=== PATIENT | male | born 1935 | race Caucasian/White ===

== ENCOUNTER 2024-03-04 10:36 | Emergency (ER) | payer MEDICARE, SELFPAY ==
[2024-03-04] VITALS (27 sets, daily range): BP systolic 122–155; BP diastolic 58–98; PULSE 85–103; RESP 16–32; TEMP 36.4–36.6; O2SAT 92–100; BMI 18.1
--- NOTE | 2024-03-04 10:37 | NURSING ---
NO OLD EKGS
--- NOTE | 2024-03-04 10:59 | RAD_ITS ---
STUDY: X-RAY CHEST REASON FOR EXAM: Male, 88 years old. Confusion. TECHNIQUE: Frontal view of the chest COMPARISON: None. FINDINGS: The lungs are clear. There are no pleural effusions. There is no pneumothorax. The heart is normal in size. The patient is status post sternotomy. There is a pacemaker in place. The visualized osseous structures are within normal limits. RAD/Chest 1 View (Portable) IMPRESSION: No acute thoracic pathology. Electronically Signed: Bernard Aguirre MD at 11:57 EDT ,
--- NOTE | 2024-03-04 10:59 | CT_ITS ---
STUDY: CT BRAIN WITHOUT CONTRAST REASON FOR EXAM: Male, 88 years old. Altered mental status. Fall. RADIATION DOSAGE (If Supplied By Facility): CTDIvol = ( 44.99 ) mGy, DLP = ( 746.73 ) mGycm TECHNIQUE: Transaxial CT imaging of the brain was performed without administration of intravenous contrast material. Individualized dose optimization techniques were used for this CT. COMPARISON: No relevant prior comparison study available FINDINGS: PARENCHYMA: There is an acute right sided subdural bleed in the temporal and parietal regions, measuring up to 9 mm in thickness. There is an intraparenchymal hemorrhage in the right temporal lobe measuring 2.0 x 1.3 x 1.1 cm. There is adjacent edema noted in the right temporal lobe. There is no additional bleed. 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 There is no acute infarct. There are chronic ischemic and atrophic changes. VENTRICLES: There is no hydrocephalus. MASTOID AIR CELLS AND PARANASAL SINUSES: There is opacification of the left maxillary sinus. The visualized paranasal sinuses are otherwise clear. The mastoid air cells are clear. BONES: There is no skull fracture. SOFT TISSUES: The visualized soft tissues are within normal limits. CT/Brain/Head without Contrast IMPRESSION: Acute right sided subdural bleed in the temporal and parietal regions, measuring up to 9 mm in thickness. Intraparenchymal hemorrhage in the right temporal lobe measuring 2.0 x 1.3 x 1.1 cm. There is adjacent edema noted in the right temporal lobe. 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 Chronic ischemic and atrophic changes. No acute infarct. Opacification of the left maxillary sinus. N.B. : The above Results were Read Back by Bernard Aguirre MD to DO Jenny, and understanding confirmed on 03/04/2024 11:53:29 (ET). Electronically Signed: Bernard Aguirre MD at 11:57 EDT ,
--- NOTE | 2024-03-04 11:02 | EKG12_ITS ---
Test Reason : SEIZURE Blood Pressure : / mmHG Vent. Rate : 101 BPM Atrial Rate : 101 BPM P-R Int : 154 ms QRS Dur : 090 ms QT Int : 322 ms P-R-T Axes : 040 -02 263 degrees QTc Int : 417 ms Sinus tachycardia with occasional Premature ventricular complexes Nonspecific ST and T wave abnormality Abnormal ECG Confirmed by Ubaldo Anguiano ([id number]), assistant production editor PIERRE YEAGER ([id number]) on 03/05/2024 9:58:41 AM Referred By: ANDREA Confirmed By:Ubaldo Anguiano
--- NOTE | 2024-03-04 11:05 | EX.ED.DYSGE1 ---
HPI <GLYNN Graham - Last Filed: 03/04/24 20:14> History of Present Illness Chief Complaint: Seizure Narrative Narrative: 88-year-old male with past medical history of traumatic subarachnoid hemorrhage, type 2 diabetes, congestive heart failure presents after having seizures. Reports from EMS that he fell several weeks ago and had a traumatic SDH. He is staying at [facility]. Yesterday he had a fall and was transported [facility]. Currently this morning he was having seizures recurrently for 30 minutes which broke with Versed administered by EMS. [facility] states he has not been eating over the last 2 to 3 weeks. [facility] <GLYNN Graham - Last Filed: 03/04/24 20:14> [facility] Medical History (Updated 03/04/24 @ 12:54 by GLYNN Graham) A-fib CHF (congestive heart failure) Dementia Diabetes Dysphagia Encephalopathy acute Full code status Generalized muscle weakness Pneumonia Rhabdomyolysis Skull fracture Traumatic ischemia of muscle Traumatic subarachnoid hemorrhage Home Medications atorvastatin 20 mg tablet 20 mg PO DAILY 03/04/24 [History Last Taken Unknown] gabapentin 100 mg capsule 200 mg PO BID 03/04/24 [History Last Taken Unknown] metformin 500 mg tablet,extended release 24 hr 500 mg PO DAILY 03/04/24 [History Last Taken Unknown] metoprolol succinate 100 mg tablet,extended release 24 hr 100 mg PO DAILY 03/04/24 [History Last Taken Unknown] mirtazapine 15 mg tablet (Remeron) 7.5 mg PO DAILY 03/04/24 [History Last Taken Unknown] Allergy/AdvReac Type Severity Reaction Status Date / Time heparin Allergy Unknown PT UNABLE Verified 03/04/24 10:38 TO RESPOND-NEEDS F/U Social History Smoking Status: Unknown if ever smoked ROS <GLYNN Graham - Last Filed: 03/04/24 20:14> ROS ED ROS Narrative Unable to obtain due to mental status EXAM <GLYNN Graham - Last Filed: 03/04/24 20:14> Physical Exam Narrative Exam Narrative: CONST: Cachectic male lying in bed with eyes closed. EYES: PERRL. ENT: Dry mucous membranes. NECK: Normal inspection. RESP: No respiratory distress, CTAB. CVS: Regular rate and rhythm, no murmur, no gallop. ABD: Soft and nontender, no guarding or rebound. SKIN: Color normal, no rash, warm, dry, intact. EXTREMITIES: Normal appearance, no pedal edema. NEURO: Patient responds to voice by moaning, no coherent speech, does not follow commands, protecting his airway. Const Vital Signs: 03/04/24 10:38 03/04/24 12:15 03/04/24 12:30 Temperature 97.9 F Temperature Source Temporal Pulse Rate 103 H 90 Respiratory Rate 32 H 27 H Blood Pressure 146/89 H 155/86 H 147/87 H Blood Pressure Mean 108 107 104 Pulse Ox 100 98 Oxygen Delivery Method Nasal Cannula Oxygen Flow Rate (L/min) 3 03/04/24 12:45 03/04/24 12:45 03/04/24 13:00 Temperature Temperature Source Pulse Rate 90 90 Respiratory Rate 26 H 26 H Blood Pressure 148/98 H 148/92 H Blood Pressure Mean 113 109 Pulse Ox 99 99 Oxygen Delivery Method Oxygen Flow Rate (L/min) 03/04/24 13:15 03/04/24 13:30 03/04/24 13:45 Temperature Temperature Source Pulse Rate 88 86 90 Respiratory Rate 18 17 21 H Blood Pressure 135/84 H 142/71 H Blood Pressure Mean 99 89 Pulse Ox 99 100 99 Oxygen Delivery Method Oxygen Flow Rate (L/min) 03/04/24 14:00 03/04/24 14:15 03/04/24 14:30 Temperature Temperature Source Pulse Rate 85 88 85 Respiratory Rate 21 H 22 H 18 Blood Pressure 137/58 H Blood Pressure Mean 80 Pulse Ox 100 100 97 Oxygen Delivery Method Oxygen Flow Rate (L/min) 03/04/24 14:45 03/04/24 15:00 03/04/24 15:15 Temperature Temperature Source Pulse Rate 88 90 93 Respiratory Rate 21 H 18 23 H Blood Pressure Blood Pressure Mean Pulse Ox 95 92 92 Oxygen Delivery Method Oxygen Flow Rate (L/min) 03/04/24 15:30 03/04/24 15:45 03/04/24 16:00 Temperature Temperature Source Pulse Rate 88 92 85 Respiratory Rate 16 19 H 16 Blood Pressure 126/61 H Blood Pressure Mean 81 Pulse Ox 94 94 95 Oxygen Delivery Method Oxygen Flow Rate (L/min) 03/04/24 16:15 03/04/24 16:30 03/04/24 16:45 Temperature Temperature Source Pulse Rate 91 93 95 Respiratory Rate 22 H 17 21 H Blood Pressure Blood Pressure Mean Pulse Ox 95 94 100 Oxygen Delivery Method Oxygen Flow Rate (L/min) 03/04/24 17:00 03/04/24 17:15 03/04/24 17:30 Temperature Temperature Source Pulse Rate 91 91 90 Respiratory Rate 16 18 17 Blood Pressure Blood Pressure Mean Pulse Ox 98 97 97 Oxygen Delivery Method Oxygen Flow Rate (L/min) 03/04/24 17:45 03/04/24 18:00 03/04/24 18:15 Temperature Temperature Source Pulse Rate 91 90 91 Respiratory Rate 21 H 20 H 21 H Blood Pressure 124/73 H Blood Pressure Mean 85 Pulse Ox 99 99 99 Oxygen Delivery Method Oxygen Flow Rate (L/min) 03/04/24 20:02 Temperature 97.5 F L Temperature Source Pulse Rate 88 Respiratory Rate 18 Blood Pressure 122/61 H Blood Pressure Mean 81 Pulse Ox 96 Oxygen Delivery Method Oxygen Flow Rate (L/min) <Dr. Colt Alvarado, DO - Last Filed: 03/04/24 20:49> Physical Exam Const Vital Signs: 03/04/24 10:38 03/04/24 12:15 03/04/24 12:30 Temperature 97.9 F Temperature Source Temporal Pulse Rate 103 H 90 Respiratory Rate 32 H 27 H Blood Pressure 146/89 H 155/86 H 147/87 H Blood Pressure Mean 108 107 104 Pulse Ox 100 98 Oxygen Delivery Method Nasal Cannula Oxygen Flow Rate (L/min) 3 03/04/24 12:45 03/04/24 12:45 03/04/24 13:00 Temperature Temperature Source Pulse Rate 90 90 Respiratory Rate 26 H 26 H Blood Pressure 148/98 H 148/92 H Blood Pressure Mean 113 109 Pulse Ox 99 99 Oxygen Delivery Method Oxygen Flow Rate (L/min) 03/04/24 13:15 03/04/24 13:30 03/04/24 13:45 Temperature Temperature Source Pulse Rate 88 86 90 Respiratory Rate 18 17 21 H Blood Pressure 135/84 H 142/71 H Blood Pressure Mean 99 89 Pulse Ox 99 100 99 Oxygen Delivery Method Oxygen Flow Rate (L/min) 03/04/24 14:00 03/04/24 14:15 03/04/24 14:30 Temperature Temperature Source Pulse Rate 85 88 85 Respiratory Rate 21 H 22 H 18 Blood Pressure 137/58 H Blood Pressure Mean 80 Pulse Ox 100 100 97 Oxygen Delivery Method Oxygen Flow Rate (L/min) 03/04/24 14:45 03/04/24 15:00 03/04/24 15:15 Temperature Temperature Source Pulse Rate 88 90 93 Respiratory Rate 21 H 18 23 H Blood Pressure Blood Pressure Mean Pulse Ox 95 92 92 Oxygen Delivery Method Oxygen Flow Rate (L/min) 03/04/24 15:30 03/04/24 15:45 03/04/24 16:00 Temperature Temperature Source Pulse Rate 88 92 85 Respiratory Rate 16 19 H 16 Blood Pressure 126/61 H Blood Pressure Mean 81 Pulse Ox 94 94 95 Oxygen Delivery Method Oxygen Flow Rate (L/min) 03/04/24 16:15 03/04/24 16:30 03/04/24 16:45 Temperature Temperature Source Pulse Rate 91 93 95 Respiratory Rate 22 H 17 21 H Blood Pressure Blood Pressure Mean Pulse Ox 95 94 100 Oxygen Delivery Method Oxygen Flow Rate (L/min) 03/04/24 17:00 03/04/24 17:15 03/04/24 17:30 Temperature Temperature Source Pulse Rate 91 91 90 Respiratory Rate 16 18 17 Blood Pressure Blood Pressure Mean Pulse Ox 98 97 97 Oxygen Delivery Method Oxygen Flow Rate (L/min) 03/04/24 17:45 03/04/24 18:00 03/04/24 18:15 Temperature Temperature Source Pulse Rate 91 90 91 Respiratory Rate 21 H 20 H 21 H Blood Pressure 124/73 H Blood Pressure Mean 85 Pulse Ox 99 99 99 Oxygen Delivery Method Oxygen Flow Rate (L/min) 03/04/24 20:02 Temperature 97.5 F L Temperature Source Pulse Rate 88 Respiratory Rate 18 Blood Pressure 122/61 H Blood Pressure Mean 81 Pulse Ox 96 Oxygen Delivery Method Oxygen Flow Rate (L/min) [facility] <GLYNN Graham - Last Filed: 03/04/24 20:14> [facility] Narrative Medical decision making narrative: I spoke with the patient's son, Roderick Canseco . who provided more history. He fell on 02/21/2024 and had a traumatic subdural hemorrhage treated at [place] without surgical intervention. He was discharged to [facility] and was awake and talking but not eating or drinking with poor memory and poor mobility. He had several falls over the last few days and became more unresponsive. Was seen at [place] again and their documents from 03/03/[address] head showed new versus redistributing SDH with 9 mm thickness?expected evolution of right temporal intraparenchymal hemorrhage. There was a new punctate hyperdensity in the left lateral ventricle which cannot exclude intraventricular hemorrhage. This morning he had seizure activity which broke with Versed from EMS. He is lying in bed with eyes closed. He is protecting his airway. GCS 8. Hemodynamically stable. He has very dry mucous membranes restarted with blood work. WBC is 18.8, hemoglobin 10.3, he is hyponatremic at 151, potassium 3.0, creatinine 0.66. Lactate is 1.3. Urinalysis has ketones and blood but no infection. CXR shows no acute process. CT brain shows a right-sided subdural bleed in the temporoparietal region measuring 9 mm. There is also an right temporal lobe intraparenchymal hemorrhage. Sounds very similar from the [place] report on 03/03/2024. Patient's family members arrived at bedside and were informed of the results. Had a lengthy discussion about goals of care and his CODE STATUS. He has been declining for the last 2 to 3 weeks after this head bleed, continued to fall and is now more unresponsive. His son Roderick Leonard Jr. and family members would like to make him DNR comfort care and hospice consult was placed in the ED. The hospice nurse arrived at 5 PM to speak with the patient's family and after discussion the plan is to try and get the patient placed to their inpatient hospice unit. Patient will be transferred to [facility] hosp[facility]. 30 minutes of critical care time was consumed by evaluation patient, treatment and planning, discussion with family and consultants. Lab Data Attestation: I reviewed the patient's lab results. Labs: Laboratory Results - last 24 hr 03/04/24 03/04/24 03/04/24 10:43 11:10 11:25 WBC 18.8 H RBC 3.76 L Hgb 10.3 L Hct 33.9 L MCV 90.2 MCH 27.4 MCHC 30.4 L RDW Std Deviation 48.7 H RDW Coeff of Frans[place] 14.8 H Plt Count 377 MPV 9.2 Immature Gran % (Auto) 0.600 Neut % (Auto) 84.0 H Lymph % (Auto) 5.0 L [place] % (Auto) 9.4 Eos % (Auto) 0.6 Baso % (Auto) 0.4 Absolute Neuts (auto) 15.8 H Absolute Lymphs (auto) 0.94 Nucleated RBC % 0 Differential Comment SCANNED Diff Path Review March Sodium 151 H Potassium 3.0 L Chloride 113 H Carbon Dioxide 31.0 Anion Gap 7 BUN 8 Creatinine 0.66 L Estim Creat Clear Calc 49.31 Est GFR (MDRD) Af Amer 147 Est GFR (MDRD) Non-Af 121 BUN/Creatinine Ratio 12.1 Glucose 175 H Lactic Acid 1.3 Calcium 8.4 L Total Bilirubin 0.60 AST 14 L ALT 17 Alkaline Phosphatase 85 Total Protein 6.2 L Albumin 2.0 L Globulin 4.2 Albumin/Globulin Ratio 0.5 L Urine Color Yellow Urine Clarity Clear Urine pH 5.0 Ur Specific [place] 1.015 Urine Protein 15 H Urine Glucose (UA) 50 H Urine Ketones 50 H Urine Occult Blood 150 H Urine Nitrite Negative Urine Bilirubin Negative Urine Urobilinogen Normal Ur Leukocyte Esterase 25 H Urine RBC 10-25 SEEN Urine WBC 0-5 SEEN Ur Squamous Epith Cells 0 SEEN Urine Bacteria RARE Urine Mucus 0 SEEN Radiography Diagnostic Testing: Clinical Impression(s) from Imaging Studies Brain CT 03/04/24 10:59 IMPRESSION: Acute right sided subdural bleed in the temporal and parietal regions, measuring up to 9 mm in thickness. Intraparenchymal hemorrhage in the right temporal lobe measuring 2.0 x 1.3 x 1.1 cm. There is adjacent edema noted in the right temporal lobe. 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 Chronic ischemic and atrophic changes. No acute infarct. Opacification of the left maxillary sinus. N.B. : The above Results were Read Back by Bernard Aguirre MD to DO Jenny, and understanding confirmed on 03/04/2024 11:53:29 (ET). Electronically Signed: Bernard Aguirre MD at 11:57 EDT , ADDENDUM: 03/04/24 1204 IMPRESSION: Acute right sided subdural bleed in the temporal and parietal regions, measuring up to 9 mm in thickness. Intraparenchymal hemorrhage in the right temporal lobe measuring 2.0 x 1.3 x 1.1 cm. There is adjacent edema noted in the right temporal lobe. 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 Chronic ischemic and atrophic changes. No acute infarct. Opacification of the left maxillary sinus. N.B. : The above Results were Read Back by Bernard Aguirre MD to DO Jenny, and understanding confirmed on 03/04/2024 11:53:29 (ET). Electronically Signed: Bernard Aguirre MD at 11:57 EDT , Chest X-Ray 03/04/24 10:59 IMPRESSION: No acute thoracic pathology. Electronically Signed: Bernard Aguirre MD at 11:57 EDT , EKG Initial EKG: Attestation: I personally reviewed and interpreted this EKG as follows: Interpretation: Sinus Rhythm and No Acute Injury Pattern Comments: Sinus tachycardia at 101 bpm with occasional PVCs Nonspecific ST/T wave abnormality <Dr. Colt Alvarado DO - Last Filed: 03/04/24 20:49> [facility] Lab Data Labs: Laboratory Results - last 24 hr 03/04/24 03/04/24 03/04/24 10:43 11:10 11:25 WBC 18.8 H RBC 3.76 L Hgb 10.3 L Hct 33.9 L MCV 90.2 MCH 27.4 MCHC 30.4 L RDW Std Deviation 48.7 H RDW Coeff of [place] 14.8 H Plt Count 377 MPV 9.2 Immature Gran % (Auto) 0.600 Neut % (Auto) 84.0 H Lymph % (Auto) 5.0 L [place] % (Auto) 9.4 Eos % (Auto) 0.6 Baso % (Auto) 0.4 Absolute Neuts (auto) 15.8 H Absolute Lymphs (auto) 0.94 Nucleated RBC % 0 Differential Comment SCANNED Diff Path Review March Sodium 151 H Potassium 3.0 L Chloride 113 H Carbon Dioxide 31.0 Anion Gap 7 BUN 8 Creatinine 0.66 L Estim Creat Clear Calc 49.31 Est GFR (MDRD) Af Amer 147 Est GFR (MDRD) Non-Af 121 BUN/Creatinine Ratio 12.1 Glucose 175 H Lactic Acid 1.3 Calcium 8.4 L Total Bilirubin 0.60 AST 14 L ALT 17 Alkaline Phosphatase 85 Total Protein 6.2 L Albumin 2.0 L Globulin 4.2 Albumin/Globulin Ratio 0.5 L Urine Color Yellow Urine Clarity Clear Urine pH 5.0 Ur Specific [place] 1.015 Urine Protein 15 H Urine Glucose (UA) 50 H Urine Ketones 50 H Urine Occult Blood 150 H Urine Nitrite Negative Urine Bilirubin Negative Urine Urobilinogen Normal Ur Leukocyte Esterase 25 H Urine RBC 10-25 SEEN Urine WBC 0-5 SEEN Ur Squamous Epith Cells 0 SEEN Urine Bacteria RARE Urine Mucus 0 SEEN Radiography Diagnostic Testing: Clinical Impression(s) from Imaging Studies Brain CT 03/04/24 10:59 IMPRESSION: Acute right sided subdural bleed in the temporal and parietal regions, measuring up to 9 mm in thickness. Intraparenchymal hemorrhage in the right temporal lobe measuring 2.0 x 1.3 x 1.1 cm. There is adjacent edema noted in the right temporal lobe. 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 Chronic ischemic and atrophic changes. No acute infarct. Opacification of the left maxillary sinus. N.B. : The above Results were Read Back by Bernard Aguirre MD to DO Jenny, and understanding confirmed on 03/04/2024 11:53:29 (ET). Electronically Signed: Bernard Aguirre MD at 11:57 EDT , ADDENDUM: 03/04/24 1206 IMPRESSION: Acute right sided subdural bleed in the temporal and parietal regions, measuring up to 9 mm in thickness. Intraparenchymal hemorrhage in the right temporal lobe measuring 2.0 x 1.3 x 1.1 cm. There is adjacent edema noted in the right temporal lobe. 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 Chronic ischemic and atrophic changes. No acute infarct. Opacification of the left maxillary sinus. N.B. : The above Results were Read Back by Bernard Aguirre MD to DO Jenny, and understanding confirmed on 03/04/2024 11:53:29 (ET). Electronically Signed: Bernard Aguirre MD at 11:57 EDT , Chest X-Ray 03/04/24 10:59 IMPRESSION: No acute thoracic pathology. Electronically Signed: Bernard Aguirre MD at 11:57 EDT , Treatment and Re-Evaluation :: I have personally performed a face to face assessment of the patient and have reviewed the TOMMIE Note. I performed a substantive portion of the visit including all aspects of the following. My hernandez findings include: History: Patient presents with possible seizure that was noticed today. Patient was having some twitching of his face. The senior care staff states that this has been constant. EMS administered Versed prior to arrival and the twitching stopped. Patient is nonverbal and is a poor informant. Patient had recent fall and subdural bleeding. Patient was seen at [facility] for that. Family requested the patient be transferred back to the extended care facility yesterday. Exam: Vital signs are stable except for mild tachypnea of 32. Patient is afebrile. Patient is in no acute distress. Oral mucosa is dry. Neck is supple. Trachea is midline. There is no JVD. Heart was regular rate and rhythm. Lungs are clear and equal bilaterally. There is adequate respiratory effort noted. Abdomen is soft. Bowel sounds are normal. There is no distention noted. Cranial nerves II through XII are grossly intact. There are no appreciable deficits noted. Patient is uncooperative with neurologic testing. Medical Decision Making: Differential diagnosis includes intracranial bleeding, seizure, electrolyte abnormality, dehydration, infection, and functional decline. CT scan of the brain will be obtained to assess for intracranial bleeding. Chest x-ray will be obtained to assess for pneumonia. EKG will be obtained to assess for cardiac dysrhythmia and cardiac ischemia. CBC will be obtained to assess for leukocytosis and anemia. Comprehensive metabolic profile will be obtained to assess for hepatic function, renal function, and electrolyte abnormality. Urinalysis will be obtained to assess for urinary tract infection. Serum lactate will be obtained to assess for sepsis. Patient was given IV fluids. CBC shows mild leukocytosis of 18.8. Hemoglobin was 10.3 and hematocrit was 33.9. Platelets are normal. Comprehensive metabolic profile shows a sodium of 151. Potassium was 3.0. Creatinine was slightly low at 0.66. Glucose was 175. Remainder was essentially within normal limits. Urinalysis was reviewed. Leukocyte esterase was 25 with 0-5 white blood cells and no bacteria. Occult blood was 150 with 10-[address] scan of the brain was obtained. There is a right subdural hemorrhage that is acute. It measures approximately 9 mm. There is also intraparenchymal bleeding in the right temporal area measuring 2.0 cm x 1.3 cm x 1.1 cm. Upon review of records from [facility], these are similar in appearance to CT scan performed there. Findings were discussed with the family. Family is requesting patient to be made hospice. Hospice will be in to evaluate the patient and discuss options with the family. Family and hospice discussed options and patient will be transferred to inpatient hospice facility. Family understands and is agreeable with the plan. All questions were answered. Discharge Plan Triage Chief Complaint: Seizure ED Midlevel Provider: Ester Weinberg ED Provider: Colt Alvarado Dx/Rx/DC Orders Clinical Impression: Acute dehydration, Subdural hemorrhage, Seizures, Encephalopathy, Hypernatremia, Hypokalemia Prescriptions: No Action atorvastatin 20 mg tablet 20 mg PO DAILY gabapentin 100 mg capsule 200 mg PO BID metformin 500 mg tablet extended release 24 hr 500 mg PO DAILY metoprolol succinate 100 mg tablet extended release 24 hr 100 mg PO DAILY mirtazapine [Remeron] 15 mg tablet 7.5 mg PO DAILY [facility] [Primary Care Provider] - Disposition Disposition: Hospice in Medical Facility Discharge Location: [facility] Discharge Date/Time: 03/04/24 20:28
[2024-03-04] MEDS: 0.9% Normal Saline (1000mL) 1,000 ML 999 ML IV (11:07)
[2024-03-04 11:10] LABS: Absolute Lymphocyte Count 0.94 X10^3/uL (0.83-4.51); Absolute Neutrophil Count 15.8 X10^3/uL (2.0-7.7); Basophil# 0.08 X10^3/uL; Basophil% 0.4 % (0-1); Eosinophil# 0.12 X10^3/uL; Eosinophils% 0.6 % (0-5); Hematocrit 33.9 % (40-54); Hemoglobin 10.3 g/dL (13.0-16.5); Lymphocyte # 0.94 X10^3/ul (0.83-4.51); Mean Corp Hgb Conc 30.4 g/dL (32-36); Mean Corpuscular Hgb 27.4 pg (27.0-32.0); Mean Corpuscular Volume 90.2 fL (80-94); Mean Platelet Vol. 9.2 fl (6.2-12.0); Monocyte# 1.77 X10^3/uL; Monocyte% 9.4 % (0-10); NRBC Flagged by Analyzer 0 % (0-5); Neutrophil # 15.75 X10^3/uL (2.7-7.7); POSITIVE DIFFERENTIAL YES; Platelet Count 377 K/mm3 (150-450); RBC Distribution Width CV 14.8 % (11.6-14.6); RBC Distribution Width SD 48.7 fl (35.1-43.9); Red Blood Count 3.76 M/mm3 (4.6-6.2); White Blood Count 18.8 K/mm3 (4.4-11.0)
[2024-03-04 11:22] LABS: ALB/GLOB Ratio 0.5 RATIO (0.9-2.4); AST(SGOT) 14 U/L (15-37); Alanine Aminotransfer ALT/SGPT 17 U/L (16-61); Alkaline Phosphatase 85 U/L (45-117); Anion Gap 7 (5-15); BUN 8 mg/dL (7-18); BUN/Creat Ratio 12.1 RATIO (10-20); Calcium,Total 8.4 mg/dL (8.5-10.1); Chloride 113 mmol/L (98-107); Creatinine, Serum 0.66 mg/dL (0.70-1.30); EST Glomerular Filtration Rate 121 mL/min (>60); Est Glom Filt Rate - Afr Amer 147 mL/min (>60); Estimated Creatinine Clearance 49.31 ml/min; Globulin 4.2 g/dL (2.2-4.2); Glucose 175 mg/dL (74-106); Protein, Total 6.2 g/dL (6.4-8.2); Sodium Level 151 mmol/L (136-145)
[2024-03-04 11:32] LABS: Mucous, Urine 0 SEEN /hpf (<or=2+); Squamous Epithelial Cells - UA 0 SEEN /hpf (0-5)
[2024-03-04 11:53] LABS: Color, Urine Yellow (Yellow); Glucose, Dipstick 50 mg/dl (Normal); Ketone-Dipstick 50 mg/dl (Negative); Leukocyte Esterase-Dipstick 25 /ul (Negative); Nitrite-Dipstick Negative (Negative); Occult Blood-Urine 150 /ul (Negative); Protein-Dipstick 15 mg/dl (Negative); Specific Gravity, Urine 1.015 (1.002-1.030); Urine Bilirubin Dipstick Negative (Negative); Urine Clarity Clear (Clear); Urine Urobilinogen Normal (Normal)
[2024-03-04 11:54] LABS: Differential Indicated SCAN CRITERIA MET
[2024-03-04 12:06] LABS: Lactic Acid 1.3 mmol/L (0.4-1.9)
[2024-03-04 12:10] LABS: Bacteria RARE /hpf (None Seen); Red Blood Cells-Urine 10-25 SEEN /hpf (0-5); White Blood Cells 0-5 SEEN /hpf (0-5)
[2024-03-04 12:31] LABS: Differential Comment SCANNED
--- NOTE | 2024-03-04 13:03 | NURSING ---
CHART FAXED TO HOSPICE @ [id number]
[2024-03-04] MEDS: fentaNYL 100 MCG/2 ML Ampul 50 MCG IV (16:24)
[2024-03-04] MEDS: Ondansetron 4 MG/2 ML Vial IV (16:24)
[2024-03-04] MEDS: Midazolam 2 MG/2 ML Syringe IV (16:55)
--- NOTE | 2024-03-04 17:12 | NURSING ---
HOSPICE IN ROOM
--- NOTE | 2024-03-04 17:56 | ED.RN ---
at 1652 the patient started having a left sided seizure for approx 1.5 minutes. This RN notified Ester MAKI and she prescribed versed.
--- NOTE | 2024-03-04 19:37 | ED.RN ---
This RN gave report to Saloni in hospice on the patient.
[2024-03-05 16:08] LABS: Pathologist Review Reviewed
== END 2024-03-04 20:28 | disposition hospice, inpatient (51) ==
PROVIDERS: Physician Assistant; Emergency Provider Emergency Medicine; Visit Provider Emergency Medicine
DX: E86.0 Dehydration (principal); I50.9 Heart failure, unspecified; I48.91 Unspecified atrial fibrillation; R56.9 Unspecified convulsions; S06.5XAA Traumatic subdural hemorrhage with loss of consciousness status unknown, initial encounter; E11.9 Type 2 diabetes mellitus without complications; G93.40 Encephalopathy, unspecified; E87.1 Hypo-osmolality and hyponatremia; E87.0 Hyperosmolality and hypernatremia; E87.6 Hypokalemia; Z79.899 Other long term (current) drug therapy; Z79.84 Long term (current) use of oral hypoglycemic drugs; W19.XXXA Unspecified fall, initial encounter
CPT/HCPCS: 70450; 71045; 80053; 81001; 83605; 85025; 93005; 96361; 96374; 96375; 99285; J7030; A4216; J2405